=== PATIENT | female | born 1975 | race Caucasian/White ===

== ENCOUNTER 2018-12-18 19:15 | Emergency (ER) | payer BC ==
[~2018-12-18] VITALS: Ht 172.7 cm; Wt 68.0 kg
[2018-12-18] MEDS ORDERED: SYNTHROID175 MCG PO (19:27)
[2018-12-18] MEDS ORDERED: Norco 5-325 Ta1 EACH PO (20:10)
== END 2018-12-18 20:18 | disposition home or self-care (01) ==
LOC: ER 19:15
DX: S82.62XA Displaced fracture of lateral malleolus of left fibula, initial encounter for closed fracture (principal); Z79.899 Other long term (current) drug therapy; W01.0XXA Fall on same level from slipping, tripping and stumbling without subsequent striking against object, initial encounter
CPT/HCPCS: 27788; 73610; 99283-25; A9270; A9270-GY